=== PATIENT | female | born 1985 | race Hispanic/Latino ===

== ENCOUNTER 2018-04-27 21:45 | Inpatient (IN) | payer SELFPAY ==
--- NOTE | 2018-04-27 23:12 | ULT ---
GALLBLADDER ULTRASOUND: History: Abdominal pain. Comparison: None. Technique: Utilizing a multihertz transducer, sonographic imaging of the right upper quadrant was per formed in the longitudinal and transverse plane. FINDINGS: The head of the pancreas has a normal echotexture. The remainder of the pancreas is obscured by bowel gas. Hepatic parenchyma has a normal echotexture. No hepatic masses or intrahepatic biliary dilatation. There is sonographic evidence of cholelithiasis without sonographic evidence of cholecystitis. No gal lbladder wall thickening or pericholecystic fluid. Negative Rivas's sign. Common bile duct measures 1.2 cm. Right kidney: No hydronephrosis. IMPRESSION: 1. Sonographic evidence of cholelithiasis without definite sonographic evidence cholecystitis. 2. Dilatation of the common bile duct, worrisome for choledocholithiasis until proven otherwise. Cons ider ERCP. POS: [facility]
[2018-04-27] MEDS ORDERED: MEROPENEM 1 GM/50 ML 1 GM in Premix Bag 1 BAG IVPB SCH (23:15)
--- NOTE | 2018-04-27 23:39 | PDOC.FPRHP ---
- History of Present Illness Chief Complaint: abdominal pain History of Present Illness: This is a 32 yo F here for abdominal pain. Patient is a transfer from [facility] who was sent over for evaluation of her gall bladder. Patient had normal liver enzymes and slightly elevated WBC at [facility]. Patient notes that her stomach pain started since 1100 this morning and has been persistent throughout the day. The patient states that it is worse with food. Patient states she had eggs , beans and tortillas this morning for breakfast before the onset of pain. Patient states she has had this pain before, twice over the last year. She went to the ER before and was given omeprazole for the pain. The patient states that her pain is sharp in character and does not radiate. Patient endorses nausea but not vomiting. Patient is a , not currently . Patient denies fever, chills, chest pain, SOB, headache, or diarrhea. ED Course: 1g IV meropenem, 1L NS - Allergies/Adverse Reactions Allergies Allergy/AdvReac Type Severity Reaction Status Date / Time No Known Drug Allergies Allergy Verified 04/27/18 23:11 - Home Medications Medication Instructions Recorded Confirmed Type Acetaminophen [Tylenol] 650 mg PO Q4HR PRN 04/28/18 04/28/18 History Ibuprofen [Motrin Ib] 400 mg PO Q6HR PRN 04/28/18 04/28/18 History Ranitidine HCl [Zantac 75] 150 mg PO BID 04/28/18 04/28/18 History - History PMHx: GERD PSHx: none FHx: non contributory Social: denies tobacco, alcohol or drug use - Review of Systems General: denies: fever/chills, weight/appetite/sleep changes, night sweats, fatigue Eyes: denies: eye pain, vision changes ENT: denies: nasal congestion Respiratory: denies: cough, congestion, shortness of breath Cardiovascular: denies: chest pain, palpitation, edema Gastrointestinal: reports: nausea, abdominal pain. denies: vomiting, diarrhea, constipation Genitourinary: denies: dysuria Skin: denies: rashes, lesions, jaundice Musculoskeletal: denies: pain, tenderness, stiffness - Vital signs BP: 98/64 HR: 64 RR: 16 Tmax: 97.8 Pox: 98% on RA Wt: 61.23kg - Physical Exam Constitutional: NAD, awake, alert and oriented, well developed HEENT: normocephalic and atraumatic, PERRLA, EOMI, grossly normal vision, grossly normal hearing -HEENT: mildly icteric sclera Neck: supple, FROM, trachea midline Chest: no-tender to palpation, no lesions Heart: RRR, normal S1/S2, no murmurs/rubs/gallops, pulses present -Heart: trace edema bilaterally Lungs: CTAB, no respiratory distress, good air movement, no wheezing Abdomen: soft, non-tender, bowel sounds present, no masses/distention -Abdomen: neg rivas's sign Musculoskeletal: normal structure, normal tone, ROM grossly normal Neurological: no focal deficit Skin: no rash/lesions, good turgor Psychiatric: normal mood and affect, good judgment and insight, intact recent and remote memory FMR H&P: Results - Labs Result Diagrams: 04/28/18 05:01 04/28/18 05:01 - Radiology Interpretation US - abdomen Status: report reviewed by me (sonographic evidence of cholelithiasis w/out evidence of cholecystitis; dilated CBD 1.2) FMR H&P: A/P - Problem List (1) Choledocholithiasis Current Visit: Yes Status: Acute Code(s): K80.50 - CALCULUS OF BILE DUCT W/ O CHOLANGITIS OR CHOLECYST W/O OBST (2) Leukocytosis Current Visit: Yes Status: Acute Code(s): D72.829 - ELEVATED WHITE BLOOD CELL COUNT, UNSPECIFIED (3) Elevated transaminase level Current Visit: Yes Status: Acute Code(s): R74.0 - NONSPEC ELEV OF LEVELS OF TRANSAMNS & LACTIC ACID DEHYDRGNSE - Plan Choledocholithiasis - CBD dialted to 1.2 - US evidence of choledocholithiasis w/out evidence of cholecystitis - Will consult GI and surgery tomorrow; possible ERCP - Will continue Meropenem X 2 more doses - Will keep NPO at midnight; LR @ 100mls/hr - Morphine PRN for pain, zofran for nausea Elevated Transaminases - AST 86, ALT 68 - Will trend with AM CMP - further work up as noted above Leukocytosis - likely 2/2 to choledocholithiasis - Will trend with AM CBC - further work up as noted above DISPO: will admit for further work up fro choledocholithiasis CODE: FULL Case discussed with Dr. Maria FMR H&P: Upper Level - Pertinent history Carissa Corey is a 32 year old female who presents to the ED with one day history of constant epigastric abdominal pain worsened with food. This pain has occurred intermittently over the past month, but acutely worsened today where she was not able to tolerate food at all. She denies radiation of the pain. She has been afebrile. - Pertinent findings Vitals: BP: 109/79 P: 66 RR: 16 T: 97.9 Exam: General: alert and oriented, in no apparent distress Heart: Regular rate and rhythm, no murmurs, rubs, or gallops. Lungs: clear to auscultation bilaterally Abdomen: soft, non-tender to palpation; negative Rivas's sign. RUQ US: dilated CBD, 1.2 cm - Plan Date/Time: 04/27/18 [id number] I, Leigh Lipscomb, have evaluated this patient and agree with findings/plan as outlined by human resource internship resident. Pertinent changes/additions are listed here. Acute Choledocholithiasis - ER MD discussed patient with Dr. Panchal, who recommended admission to medical unit, with surgical and GI consultation in AM. - Likely ERCP in AM. - NPO after midnight. - IV fluids and antibiotics. - Morphine for pain control. Zofran prn. Attending Addendum - Attending Addendum Date/Time: 04/28/18 8639 I personally evaluated the patient and discussed the management with Dr. Stratton. I agree with and repeated the History, Examination, Assessment and Plan documented above with any addition or exceptions noted below. Patient now pain free but multiple episodes of this pain previously. No fever but did have diaphoresis when the pain was severe. IV Abx started in ED and will continue pending GI eval for ERCP. +stones and on my read thickened GB wall c/f cholecystitis. Pain MARCELLA and radiates back through to scapula. Exam largely unremarkable. ROS otherwise negative.
[2018-04-28] MEDS ORDERED: D5 1/2 NS w/20 mEq KCL 1,000 ML IV SCH (00:15)
[2018-04-28] MEDS ORDERED: Ondansetron ODT 4 MG TAB SL PRN (00:16)
[2018-04-28] MEDS ORDERED: Ondansetron PF 4 MG/2 ML Vial IVP PRN ×2 (00:16→00:17)
[2018-04-28] MEDS ORDERED: Morphine 4 MG/ML VIAL SLOW IVP PRN ×2 (00:16→01:15)
[2018-04-28] MEDS ORDERED: Ondansetron ODT 4 MG TAB PO PRN (00:17)
[2018-04-28] MEDS ORDERED: Acetaminophen 325 MG TAB PO PRN (00:17)
[2018-04-28] MEDS ORDERED: Lactated Ringer's 1,000 ML IV SCH (00:30)
[2018-04-28] MEDS ORDERED: Morphine 4 MG/ML VIAL SLOW IVP SCH (01:00)
[2018-04-28] MEDS: Lactated Ringer's 1,000 ML IV SCH ×2 (01:16→15:10)
--- NOTE | 2018-04-28 05:55 | PDOC.FM ---
- Subjective Subjective: Ms. Corey reports improvement of symptoms this morning. Denies N/V. Says abdominal pain has improved but still mildly persistent. Notes she does have hx of GERD and omeprazole helps her symptoms. - Objective MAR Reviewed: Yes Vital Signs & Weight: Vital Signs (12 hours) Temp Pulse Resp BP Pulse Ox 04/28/18 04:18 98.8 F 63 18 94/61 99 04/28/18 01:57 99 04/28/18 00:10 98.2 F 63 18 100/68 99 Weight Weight 63.049 kg Result Diagrams: 04/28/18 05:01 04/28/18 05:01 Phys Exam - Physical Examination Constitutional: NAD HEENT: moist MMs, sclera anicteric Respiratory: no wheezing, no rhonchi, clear to auscultation bilateral Cardiovascular: RRR, no significant murmur Gastrointestinal: soft, no distention, positive bowel sounds (mildly TTP RUQ. negative Rivas's) Musculoskeletal: no edema Neurological: non-focal Psychiatric: normal affect Skin: normal turgor, cap refill <2 seconds Dx/Plan (1) Choledocholithiasis Code(s): K80.50 - CALCULUS OF BILE DUCT W/O CHOLANGITIS OR CHOLECYST W/O OBST Status: Acute (2) Normocytic anemia Code(s): D64.9 - ANEMIA, UNSPECIFIED Status: Acute (3) Elevated transaminase level Code(s): R74.0 - NONSPEC ELEV OF LEVELS OF TRANSAMNS & LACTIC ACID DEHYDRGNSE Status: Acute (4) Leukocytosis Code(s): D72.829 - ELEVATED WHITE BLOOD CELL COUNT, UNSPECIFIED Status: Resolved - Plan Plan: 32 yo F with PMH GERD presented to [facility] ED with abdominal pain and admitted here for workup of choledocholithiasis found on US. Choledocholithiasis - CBD dilated to 1.2 - US evidence of choledocholithiasis w/out evidence of cholecystitis - Surgery plans for lap lee w/ intraop cholangiogram today - given Meropenem in ED - NPO since midnight; LR @ 100 - Morphine PRN for pain, zofran for nausea Elevated Transaminases - AST 86, ALT 68 - Will trend. Sclera anicteric. - further work up as noted above GERD - takes omeprazole Normocytic Anemia - Hgb 11.7 - continue to monitor Leukocytosis, resolved - likely 2/2 to choledocholithiasis - further work up as noted above DISPO: pending surgery today CODE: FULL
[2018-04-28 05:57] LABS: #Eosinphils 0.1 thou/uL (0.0-0.7); #Lymphocytes 2.4 thou/uL (1.20-3.40); #Monocytes 0.4 thou/uL (0.11-0.59); #Neutrophils 3.9 thou/uL (1.40-6.50); %Basophils 0.6 % (0.0-1.0); %Eosinophils 1.8 % (0.0-10.0); %Lymphocytes 35.2 % (21.0-51.0); %Monocytes 5.8 % (0.0-10.0); %Neutrophils 56.5 % (42.0-75.0); Hemoglobin 11.7 g/dL (12.0-16.0); Mean Corpuscular HGB CONC 33.4 g/dL (32.0-36.0); Mean Corpuscular Hemoglobin 29.3 pg (27.0-31.0); Mean Corpuscular Volume 87.8 fL (78.0-98.0); Mean Platelet Volume 8.4 fL (7.4-10.4); Platelet Count 201 thou/uL (130-400); RBC Distribution Width 11.8 % (11.5-14.5); Red Blood Cell (RBC) Count 3.99 mill/uL (4.20-5.40); White Blood Cell (WBC) Count 6.8 thou/uL (4.8-10.8)
[2018-04-28 06:10] LABS: ALT (SGPT) 62 U/L (8-55); AST (SGOT) 42 U/L (5-34); Albumin 3.3 g/dL (3.5-5.0); Alkaline Phosphatase 71 U/L (40-150); Anion Gap 7 mmol/L (10-20); BUN (Urea Nitrogen) 6 mg/dL (7.0-18.7); Bilirubin, Total 0.5 mg/dL (0.2-1.2); Calc. Creatinine Clearance 129 mL/min (70-130); Carbon Dioxide 25 mmol/L (22-29); Chloride 109 mmol/L (98-107); Estimated GFR-MDRD Greater than 90; Globulin 2.4 g/dL (2.4-3.5); Glucose 88 mg/dL (70-105); Potassium 3.6 mmol/L (3.5-5.1); Protein, Total 5.7 g/dL (6.0-8.3); Sodium 137 mmol/L (136-145)
[2018-04-28] MEDS ORDERED: Meropenem 1 GM in Sodium Chloride 0.9% 100 ML IVPB SCH (07:30)
[2018-04-28] MEDS ORDERED: MEROPENEM 1 GM/50 ML 1 GM in Premix Bag 1 BAG IVPB SCH ×2 (07:30→08:00)
--- NOTE | 2018-04-28 08:28 | CON ---
DATE OF CONSULTATION: 04/28/2018 CHIEF COMPLAINT: Upper abdominal pain. HISTORY OF PRESENT ILLNESS: This is a 32-year-old female, who presents with upper abdominal right up per quadrant pain, intermittent, associated with greasy foods, admitted overnight with gallstones, di lated common bile duct. Her LFTs were normal on admission. Denies history of jaundice or pancreatit is previously. PAST MEDICAL HISTORY: She denies. PAST SURGICAL HISTORY: She denies. MEDICINES TAKEN DAILY: Ranitidine and ibuprofen p.r.n. SOCIAL HISTORY: No smoking, alcohol, or other drugs. REVIEW OF SYSTEMS: Ten-system review of systems, otherwise, negative unless described above. PHYSICAL EXAMINATION: VITAL SIGNS: Blood pressure is 94/61, pulse 63, respirations 18. She is afebrile. HEENT: Sclerae are anicteric. Oropharynx clear. NECK: No lymphadenopathy. CHEST: Clear. HEART: Regular rate and rhythm. ABDOMEN: Soft, minimally tender in the right upper quadrant. No guarding or rebound. EXTREMITIES: No ischemia or edema to extremities. LABORATORY AND X-RAY FINDINGS: Hemoglobin 11, platelets are 201. White cell count 6.8. Bilirubin 0 .5. AST and ALT are elevated at 42 and 62. Alkaline phosphatase normal at 71. Ultrasound shows cho lelithiasis and dilation of common bile duct. ASSESSMENT: Cholelithiasis with dilated common bile duct with fairly normal liver function tests. PLAN: Laparoscopic cholecystectomy with intraoperative cholangiogram. Risks and benefits discussed. She gives consent. We will do this today.
--- NOTE | 2018-04-28 10:33 | HP ---
HISTORY OF PRESENT ILLNESS: Carissa Corey is a 32-year-old Syriac speaking only female presents with cholecystitis, cholelithiasis. She has had biliary symptoms for years, becoming worse last night, p resented in the emergency room yesterday with a bile duct of 1.2 cm and AST, ALT elevated with normal bilirubin, alkaline phosphatase. Patient is currently nontender. She is afebrile. Vital signs are normal. She is 4, para 4. Athletic Turf Worker phone was used. Dr. Panchal initially saw her, but luann tijerina has asked me to assume her care. ALLERGIES: None. TOBACCO: None. ALCOHOL: None. MEDICATIONS: Acetaminophen, Motrin, ranitidine. PAST SURGICAL, MEDICAL HISTORY: Noncontributory. REVIEW OF SYSTEMS: Ten point noncontributory. PHYSICAL EXAMINATION: VITAL SIGNS: 139 pounds, 98.2 degrees, 59, 95/60. HEENT: Unremarkable. LUNGS: Clear to auscultation. CARDIAC: Regular rate and rhythm without murmur or gallop. ABDOMEN: Soft, nontender, no masses. EXTREMITIES: Unremarkable. Sclerae nonicteric. SKIN: Nonjaundiced. LABORATORY DATA: White count 6, hemoglobin 11.7. Sodium 137, potassium 3.6, BUN 6, creatinine 0.63, bilirubin 0.5, AST 42, ALT 62, alkaline phosphatase 71. ASSESSMENT AND PLAN: Cholecystitis, cholelithiasis, elevated common bile duct with normal bilirubin, alkaline phosphatase, mildly elevated AST, ALT. PLAN: Laparoscopic video cholecystectomy, cholangiogram and possible ERCP if indicated. I have talk ed to Dr. Ant Jasso and Dr. Parish and if her intraoperative cholangiograms are positive and one of t gigi two physicians are viable and ERCP suite is available, she may have an ERCP on the same anesthes ia. Otherwise, we will have to wait until tomorrow. She understands risks of infection, bleeding, v isceral and biliary injury, and consents.
[2018-04-28] MEDS ORDERED: Acetaminophen 1,000 MG in Premix Bag 1 BAG IVPB SCH (11:00)
[2018-04-28] MEDS ORDERED: Ketorolac Tromethamine 30 MG/ML VIAL IVP SCH (11:00)
[2018-04-28] MEDS ORDERED: Scopolamine 1.5 mg/72 hour Patch TD SCH (11:00)
[2018-04-28] MEDS ORDERED: Levofloxacin 500 mg/D5W 100 ml Premix Bag ONE (11:13)
--- NOTE | 2018-04-28 11:55 | PRG ---
DATE OF SERVICE: 04/28/2018 This is an addendum to the note of Dr. Emily Horton. Ms. Corey is a 32-year-old female who was admitted last night with abdominal pain. She was found to have symptomatic cholecystitis and has been seen in consultation by the Surgery Service. Sh e will be taken later today for a laparoscopic video cholecystectomy and cholangiogram and possible E MULTIGRAPH OPERATOR.
[2018-04-28] MEDS ORDERED: Bupivacaine HCl 0.5%/Epinephrine 1:200,000/PF 30 ml Vial ONE (12:41)
[2018-04-28] MEDS ORDERED: Iothalamate Meglumine 60% 50 ML VIAL FS ONE (12:41)
[2018-04-28] MEDS ORDERED: Ioversol 68 % 50 ML VIAL ONE (12:44)
[2018-04-28] MEDS ORDERED: Fentanyl 100 MCG/2 ML VIAL ONE ×2 (12:46→14:27)
[2018-04-28] MEDS ORDERED: Lidocaine 1% PF 5 ML VIAL ONE (13:30)
[2018-04-28] MEDS ORDERED: Dexamethasone 20 MG/5 ML VIAL ONE (13:30)
[2018-04-28] MEDS ORDERED: Glycopyrrolate 0.2 MG/ML 5 ML SYRINGE ONE (13:30)
[2018-04-28] MEDS ORDERED: Ondansetron PF 4 MG/2 ML Vial ONE (13:30)
[2018-04-28] MEDS ORDERED: PROPOFOL 200 MG/20 ML VIAL ONE (13:30)
[2018-04-28] MEDS ORDERED: Ondansetron HCl/PF 4 MG/2 ML Vial IVP PRN (14:01)
[2018-04-28] MEDS ORDERED: Promethazine HCl 25 MG/ML VIAL IM PRN (14:01)
[2018-04-28] MEDS ORDERED: Promethazine HCl 25 MG/ML VIAL SLOW IVP PRN (14:01)
[2018-04-28] MEDS ORDERED: Ibuprofen 600 MG TAB PO PRN (14:22)
[2018-04-28] MEDS ORDERED: traMADol HCl 50 MG TAB PO PRN ×2 (14:22)
[2018-04-28] MEDS ORDERED: Acetaminophen 500 MG TAB PO PRN (14:22)
--- NOTE | 2018-04-28 16:16 | RAD ---
OPERATIVE CHOLANGIOGRAM TWO VIEWS: 04/28/18 HISTORY: Intraoperative films. These show filling of a mildly dilated common bile duct. No filling defects are seen. Some narrowing at the level of the ampulla may just be related to some peristalsis. There is emptying into the duode num. IMPRESSION: Slightly dilated common duct. No definite stones identified. POS: [facility]
[2018-04-28 18:33] VITALS: TEMP 98.5
[2018-04-28 18:34] VITALS: BP 98/66
--- NOTE | 2018-04-28 18:46 | OP ---
DATE OF PROCEDURE: 04/28/2018 PREOPERATIVE DIAGNOSES: Cholecystitis, cholelithiasis. 3, para 3. History of biliary colic for years. Bile duct 1.2 cm. Bilirubin, alkaline phosphatase normal. Transaminases mildly elevate d. POSTOPERATIVE DIAGNOSES: Cholecystitis, cholelithiasis. 3, para 3. History of biliary coli c for years. Bile duct 1.2 cm. Bilirubin, alkaline phosphatase normal. Transaminases mildly elevat ed. PROCEDURE: Chronic cholecystitis and cholelithiasis. PROCEDURE: Laparoscopic video cholecystectomy. Normal intraoperative cholangiogram using fluoroscop y, dilated common bile duct without filling defect normally tapering into the duodenum. SURGEON: Rayray Benítez M.D. ANESTHESIA: General. Local 0.5% Marcaine with epinephrine, 30 mL. DRAWING BOX TENDER: CHICA Kelly FOR PROCEDURE: The patient in the operating room under general anesthesia, abdomen was prepared with ChloraPrep, draped in routine fashion. Local anesthetic 0.5% Marcaine with epinephrine infiltrated into skin and subcutaneous tissue about each port site. Infraumbilical incision made and pneumoperit oneum to 15 mmHg obtained with the Veress needle, replacing it with a 5 port and laparoscope inserted . Right subxiphoid incision made and 11 port placed. Right subcostal incision made in mid clavicula r anterior axillary lines and 5 ports placed. Liver appeared to be normal. Gallbladder slightly dil ated, wall slightly thickened. Fundus grasped and reflected cephalad. Infundibulum grasped and refl ected laterally. Cystic artery and duct dissected free. Critical view obtained. Cystic artery doub le clipped proximally. Cystic duct singly clipped on the gallbladder side. Opening made in the cyst ic duct, cholangiocath inserted and cholangiogram was obtained. Using fluoroscopy revealing free edward w of contrast into the duodenum without filling defects and a dilated common hepatic, common bile, le ft and right hepatic ducts. Cholangiocath removed. Cystic duct stump doubly clipped, divided, and g allbladder dissected free from liver bed obtaining good hemostasis prior to division of final periton eal attachments. Gallbladder and stones removed and submitted to Pathology. Good hemostasis ensured with the cautery and irrigant and pneumoperitoneum evacuated. All instruments removed and all skin incisions approximated with interrupted subdermal 4-0 Monocryl and DermaGlue applied.
[2018-04-29] MEDS ORDERED: Polyethylene Glycol 3350 17 GM Packet PO SCH (09:00)
== END 2018-04-28 20:56 | disposition home or self-care (01) | DRG 419 ==
LOC: ERS 21:45 → SURG B 23:04 → ERS 04-28 00:05
PROVIDERS: ADMIT Emergency Medicine; ATTEND Emergency Medicine
PROC: 0FT44ZZ Resection of Gallbladder, Percutaneous Endoscopic Approach (ICD-10-PCS; principal; 2018-04-27)
PROC: BF101ZZ Fluoroscopy of Bile Ducts using Low Osmolar Contrast (ICD-10-PCS; 2018-04-27)
DX: K80.10 Calculus of gallbladder with chronic cholecystitis without obstruction (principal)
CPT/HCPCS: 36415; 47532; 76705; 80053; 85025; 88304; 90471; 90686; 96365; G0008; J0131; J0670; J1100; J1610; J1956; J2001; J2185; J2405; J2704; J3010; Q9961; Q9967